=== PATIENT | male | born 2000 | race African-American/Black ===

== ENCOUNTER 2019-05-24 06:34 | Emergency (ER) | payer SELFPAY ==
[~2019-05-24] VITALS: Ht 175.3 cm; Wt 79.8 kg
[2019-05-24 06:46] VITALS: BP 133/76; Ht 175.3 cm; Wt 79.8 kg
== END 2019-05-24 10:15 | disposition home or self-care (01) ==
LOC: ED 06:34 → EDBD 06:34 → ED 10:15
DX: J98.01 Acute bronchospasm (principal)
CPT/HCPCS: J7512; J7613